=== PATIENT | female | born 1950 | race African-American/Black ===

== ENCOUNTER 2018-02-25 10:06 | Emergency (ER) | payer MEDICARE, OTHER ==
[~2018-02-25] VITALS: Ht 167.6 cm; Wt 81.6 kg
[~2018-02-25 10:06] MED LIST: ASPI-482 PO; ASPI-630 PO; ATOR40TA59 PO; CARV25TA2 PO; CETI10TA16 PO; CLOP75TA PO; GLYB5TAB3 PO; LISI-334 PO; METF10007 PO; NAPR500T8 PO; NITR0.4T22 SL
[2018-02-25 10:38] VITALS: BP 135/84
--- NOTE | 2018-02-25 12:08 | RAD ---
Right shoulder 3 views 02/25/2018. Reason for exam: Pain after falling last night. No fracture or dislocation is seen. Joint spaces appear fairly well maintained for age. IMPRESSION: No acute abnormality. Electronically signed by: Dayne Bhatia Jr., MD (02/25/2018 12:05 PM) [facility] [place]
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
== END 2018-02-25 12:27 | disposition home or self-care (01) ==
LOC: ER 10:06
DX: M25.511 Pain in right shoulder (principal); G89.11 Acute pain due to trauma; E78.00 Pure hypercholesterolemia, unspecified; I10 Essential (primary) hypertension; I25.2 Old myocardial infarction; Z86.73 Personal history of transient ischemic attack (TIA), and cerebral infarction without residual deficits; Z95.5 Presence of coronary angioplasty implant and graft; F10.20 Alcohol dependence, uncomplicated; Y90.9 Presence of alcohol in blood, level not specified; W18.39XA Other fall on same level, initial encounter; Y93.89 Activity, other specified; Y92.89 Other specified places as the place of occurrence of the external cause; Y99.8 Other external cause status
CPT/HCPCS: 73030; 99284